=== PATIENT | male | born 2000 | race Two or more races ===

== ENCOUNTER 2021-05-16 15:22 | Emergency (ER) | payer OTHER ==
[~2021-05-16] VITALS: Ht 170.2 cm; Wt 68.1 kg
[2021-05-16 16:25] VITALS: BP 119/70
[2021-05-16] MEDS ORDERED: KETOROLAC 60 MG/2 ML VIAL. IM ONE (17:15)
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
[2021-05-16] MEDS ORDERED: IBUP-1007 PO (18:13)
[2021-05-16] MEDS ORDERED: HYDR-2761 PO (18:13)
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
[2021-05-16] MEDS ORDERED: HYDROcodone/APAP 5/325MG 1 TAB TABLET PO ONE (18:30)
== END 2021-05-16 18:31 | disposition home or self-care (01) ==
LOC: ER 15:22
DX: S42.002A Fracture of unspecified part of left clavicle, initial encounter for closed fracture (principal); M54.59 Other low back pain; V49.59XA Passenger injured in collision with other motor vehicles in traffic accident, initial encounter; Y93.89 Activity, other specified; Y92.89 Other specified places as the place of occurrence of the external cause; Y99.8 Other external cause status
CPT/HCPCS: 71045; 72131; 73000; 73030; 96372; 99284; J1885